=== PATIENT | female | born 2000 | race Caucasian/White ===

== ENCOUNTER 2025-05-12 06:43 | Inpatient (IN) | payer OTHER ==
[~2025-05-12] VITALS: Ht 160 cm; Wt 54.0 kg
[2025-05-12] MEDS ORDERED: ZOLPIDEM TARTRATE 10 MG TABLET PO PRN (07:00)
[2025-05-12] MEDS ORDERED: haloperidoL 5 MG TABLET PO PRN (07:00)
[2025-05-12] MEDS ORDERED: LORazepam 2 MG TABLET PO PRN (07:00)
[2025-05-12] MEDS: NICOTINE POLACRILEX 2 MG LOZENGE PO PRN (19:49)
[2025-05-12 20:42] VITALS: BP 108/85; PULSE 70; RESP 16; TEMP 97.5; O2SAT 100
[2025-05-13] MEDS ORDERED: GuaiFENesin/D-METHORPHAN [SUGAR-FREE] 200-20MG/10 ML SYRUP UDCUP PO PRN (06:00)
[2025-05-13] MEDS ORDERED: PETROLATUM,WHITE 28 GM JELLY TP PRN (06:00)
[2025-05-13] MEDS ORDERED: ONDANSETRON 4 MG TABLET PO PRN (06:00)
[2025-05-13] MEDS ORDERED: NICOTINE 14 MG/24 HOUR PATCH TD PRN (06:00)
[2025-05-13] MEDS ORDERED: DOCUSATE SODIUM 100 MG CAPSULE PO PRN (06:00)
[2025-05-13] MEDS ORDERED: MAGNESIUM HYDROXIDE SUSPENSION 30 ML UDCUP PO PRN (06:00)
[2025-05-13] MEDS ORDERED: ACETAMINOPHEN 325 MG TABLET PO PRN (06:00)
[2025-05-13] MEDS ORDERED: CloNIDine HCL 0.1 MG TABLET PO PRN (06:00)
[2025-05-13] MEDS ORDERED: LOPERAMIDE HCL 2 MG CAPSULE PO PRN (06:00)
[2025-05-13] MEDS ORDERED: ALBUTEROL SULFATE HFA 90 MCG/PUFF 8 GM INHALER IH PRN (06:00)
[2025-05-13] MEDS ORDERED: MAG HYDROX/ALUMINUM HYD/SIMETH ES 30 ML SUSPENSION UDCUP PO PRN (06:00)
[2025-05-13] MEDS ORDERED: IBUPROFEN 400 MG TABLET PO PRN (06:00)
[2025-05-13 08:20] VITALS: BP 117/75; PULSE 96; RESP 16; TEMP 98.1; O2SAT 97
[2025-05-13 20:08] VITALS: BP 130/84; PULSE 68; RESP 18; TEMP 97.5; O2SAT 100
[2025-05-14 03:07] LABS: HEPATITIS C AB (EIA) Non Reactive (Non Reactive)
[2025-05-14 08:03] VITALS: BP 114/81; PULSE 74; RESP 17; TEMP 97.9; O2SAT 99
[2025-05-14 09:54] LABS: HEMOGLOBIN A1C 4.1 % (3.8-5.6)
[2025-05-14 09:56] LABS: THYROID STIMULATING HORMONE 1.45 uIU/mL (0.36-3.74)
[2025-05-14 10:19] LABS: CHOL/HDL RATIO 1.9 (3.9-5.7)
== END 2025-05-14 12:00 | disposition home or self-care (01) | DRG 885 ==
LOC: B2X 14:20
PROVIDERS: ADMIT Psychiatry & Neurology Child & Adolescent Psychiatry; ATTEND Psychiatry & Neurology Child & Adolescent Psychiatry
PROC: GZ58ZZZ Individual Psychotherapy, Cognitive-Behavioral (ICD-10-PCS; principal; 2025-05-13)
PROC: GZ56ZZZ Individual Psychotherapy, Supportive (ICD-10-PCS; 2025-05-13)
DX: F33.2 Major depressive disorder, recurrent severe without psychotic features (principal); G47.00 Insomnia, unspecified; F41.9 Anxiety disorder, unspecified; F19.10 Other psychoactive substance abuse, uncomplicated; F10.10 Alcohol abuse, uncomplicated; Y90.9 Presence of alcohol in blood, level not specified; Z56.0 Unemployment, unspecified
CPT/HCPCS: 80061; 83036; 84443; 86803; 87340

== ENCOUNTER 2025-05-12 10:48 | Emergency (ER) | payer OTHER ==
[~2025-05-12] VITALS: Ht 160 cm; Wt 54.5 kg
[2025-05-12 11:02] VITALS: BP 129/89; PULSE 76; RESP 16; TEMP 97.9; O2SAT 100
[2025-05-12 11:19] LABS: BASOPHILS % (AUTO) 0.6 % (0.0-2.0); EOSINOPHILS % (AUTO) 0.7 % (1.0-6.0); HEMATOCRIT 41.6 % (36-46); HEMOGLOBIN 14.4 g/dL (12.0-16.0); LYMPHOCYTES # (AUTO) 1.9 K/uL (1.0-4.8); LYMPHOCYTES % (AUTO) 31.8 % (22.0-44.0); MEAN CORPUSCULAR HEMOGLOBIN 33.5 pg (26.0-34.0); MEAN CORPUSCULAR HGB CONC 34.6 G/dL (31.0-37.0); MEAN CORPUSCULAR VOLUME 97 fL (80-100); MONOCYTES # (AUTO) 0.5 K/uL (0.1-1.0); MONOCYTES % (AUTO) 9.1 % (2.0-9.0); NEUTROPHILS # (AUTO) 3.4 K/uL (1.8-7.7); NEUTROPHILS % (AUTO) 57.8 % (40.0-70.0); PLATELET COUNT (AUTO) 228 K/uL (150-450); RED BLOOD CELL COUNT(AUTO) 4.29 MIL/uL (4.00-5.20)
[2025-05-12 11:20] LABS: COVID AG,FIA SOURCE NASAL SWAB
[2025-05-12 11:30] LABS: ANION GAP 10 mmol/L (8-16); CALCIUM, TOTAL 9.4 mg/dL (8.8-10.5); CARBON DIOXIDE 27 mmol/L (22-29); CHLORIDE 103 mmol/L (98-107); GLOMERULAR FILTR. RATE CALC > 60 mL/min (>60); GLUCOSE,RANDOM 69 mg/dL (70-110); SODIUM SERUM 140 mmol/L (136-145); UREA NITROGEN, BLOOD 4 mg/dL (7-18)
[2025-05-12 11:58] LABS: SARS-COV2 (COVID) ANTIGEN,FIA Negative (Negative)
== END 2025-05-12 16:39 | disposition short-term general hospital (02) ==
LOC: EMS 10:49
DX: R45.851 Suicidal ideations (principal); F10.129 Alcohol abuse with intoxication, unspecified; Z20.822 Contact with and (suspected) exposure to COVID-19; Y90.2 Blood alcohol level of 40-59 mg/100 ml
CPT/HCPCS: 99285; 87426; 80048; 84703; 85025; 36415; G0480